=== PATIENT | male | born 1955 | race Caucasian/White ===

== ENCOUNTER 2023-03-25 12:40 | Outpatient (AMB) | payer BC, SELFPAY ==
--- NOTE | 2023-03-25 13:07 | MHC.OFFVIS ---
Intake Intake Visit Reasons: ELevated PSA Intake Note: New Patient presents for initial visit for Elevated PSA (2nd opinion) Urology Medications: Sildenafil, Tamsulosin Blood Thinner: none Medical Clerical Assistant Required: No Accompanied by: Spouse Allergies No Known Allergies Allergy (Verified 03/25/23 21:19) Medication List - Last Reconciled 03/25/23 by DARIEL Shah atorvastatin 40 mg PO DAILY colchicine mg PO escitalopram oxalate 10 mg PO DAILY fenofibrate nanocrystallized 48 mg PO DAILY finasteride 5 mg PO DAILY 90 days lisinopril 10 mg PO DAILY sildenafil mg PO DAILY tamsulosin mg PO DAILY HPI HPI Comments History of Present Illness Details Savanna is a very pleasant 68-year-old male patient of Dr. Tuttle?was accompanied by his at today's office visit. He has a past medical history of hyperlipidemia, nephrolithiasis, chronic kidney disease, and hypertension. He presents to the office today for a 2nd opinion for an elevated PSA. In discussion with the patient today reports following up with [facility] for a PSA of 6.5. It appears prostate MRI was ordered and performed these results were reviewed with the patient today. A 1.8 x 1.4 cm left transition zone lesion extending from the base to mid gland PI-RADS category 5 very high clinical significant cancer is highly likely to be present. A 2 x 1.3 cm left transitional zone lesion in the mid gland and 1.9 x 1cm right peripheral zone lesion in the apex PI-RADS category 3. No evidence of adenopathy, capsule, or seminal vesicle invasion. No suspicious osseous lesions present. 3D processing calculated prostate volume of approximately 58 mL. Discussed at length potential causes for elevated PSA. Discussed undergoing targeted biopsy for further assessment evaluation. Discussed procedure at length. All questions were answered. When asked he reports to be happy with current voiding parameters on 0.4 mg of Flomax. He otherwise denies urinary urgency, urinary frequency, incontinence, nocturia, hematuria, dysuria, foul smelling urine, changes to urinary stream, flank pain, fever, and or chills. When asked he does report family history of prostate cancer. [facility], LAT[facility] Medical History Hyperlipidemia Lower urinary tract symptoms Nephrolithiasis Chronic kidney disease Hypertension Surgical History History of hernia repair Review of Systems Const Reports no additional complaints Eyes Reports no additional complaints ENT Reports no additional complaints Card Reports as per HPI Resp Reports no additional complaints GI Reports no additional complaints Reports as per HPI Musc Reports no additional complaints Neuro Reports no additional complaints Psych Reports no additional complaints Endo Reports no additional complaints Liam/Lymph Reports no additional complaints Aller/Immun Reports no additional complaints Physical Exam Const General: cooperative, healthy appearing, comfortable, no acute distress, well developed, alert and awake Orientation/consciousness: patient oriented x3 Limitations: no limitations HEENT Head: Yes normal to inspection, Yes normocephalic and Yes atraumatic Ears: hearing grossly normal bilaterally Eyes General: appearance normal, both eyes and all related structures Neck Neck: Yes normal visual inspection and Yes trachea midline Chest Chest palpation & inspection: normal inspection of the chest Resp Effort & Inspection: normal respiratory effort and able to speak in complete sentences Cardio Rate: regular rate GI Inspection: Yes normal to inspection General: Yes no CVA tenderness Back/Spine/Pelvis Back: no CVA tenderness Skin General skin exam: no rashes or lesions noted Neuro General: patient oriented x3 Extrem General: Yes normal to inspection Psych Appearance: grossly normal and well kempt Mental Status: mental status grossly normal Speech and movement: Normal speech and movement present and Clear speech present Affect: normal affect Attitude: cooperative Thought process: Normal thought process present Thought content: Normal thought content present Insight: Fair insight present (Psych) Judgement: Fair judgement present (Psych) Results AMB Urinalysis, Automated UA Leukoctes 0 Janice/uL Last Edit by [employer] on 03/25/23 13:13 UA Nitrite Negative Last Edit by [employer] on 03/25/23 13:13 UA Urobilinogen 0.2 mg/dL Last Edit by [employer] on 03/25/23 13:13 UA Protein 0 mg/dL Last Edit by [employer] on 03/25/23 13:13 UA pH 8.0 Last Edit by [employer] on 03/25/23 13:13 UA Blood 0 Reji/uL Last Edit by [employer] on 03/25/23 13:13 UA Specific [place] 1.015 Last Edit by [employer] on 03/25/23 13:13 UA Ketone Negative Last Edit by Deena Ngo on 03/25/23 13:13 UA Bilirubin 0 mg/dL Last Edit by Deena Ngo on 03/25/23 13:13 UA Glucose 0 mg/dL Last Edit by Deena Ngo on 03/25/23 13:13 Results Reviewed Results Reviewed: Laboratory Last Values Urine pH (Auto) 8.0 03/25/23 13:08 Specific [place] (Auto) 1.015 03/25/23 13:08 Urine Protein (Auto) 0 mg/dL 03/25/23 13:08 Glucose (UA)(Auto) 0 mg/dL 03/25/23 13:08 Urine Ketones (Auto) Negative 03/25/23 13:08 Urine Blood (Auto) 0 Reji/uL 03/25/23 13:08 Urine Nitrite (Auto) Negative 03/25/23 13:08 Urine Bilirubin (Auto) 0 mg/dL 03/25/23 13:08 Urine Urobilinogen (Auto) 0.2 mg/dL 03/25/23 13:08 Leukocyte Esterase (Auto) 0 Janice/uL 03/25/23 13:08 Assessment & Plan Assessment & Plan (1) Elevated PSA: Code(s): R97.20 - Elevated prostate specific antigen [PSA] Plan: Risks, benefits and alternatives to therapy were discussed. These include but are not limited to infection, bleeding, damage to local organs and tissues, need for further interventions. ? Anesthetic risks regarding cardiac arrhythmia, blood clots, and potential mortality were discussed. The patient understands the typical recovery time and the outpatient nature of the procedure. After consideration of these risks the patient gives full informed consent and they wish to move ahead with the procedure. Plan In office urinalysis results reviewed with the patient today; as noted above. Continue Flomax as patient reports to be happy with current voiding parameters on Flomax 0.4 mg daily. Discussed at length potential causes for elevated PSA. Prostate MRI results reviewed with the patient today; as noted above. Discussed at length risks and benefits of prostate biopsy versus targeted prostate biopsy verses surveillance monitoring Start finasteride 5 mg as discussed and prescribed. Discussed risks and benefits of further treatment options as mentioned at length. Will schedule for targeted biopsy with Dr. Faith as discussed Follow-up status post targeted biopsy per Dr. Faith's orders; or sooner with any issues, concerns, and or questions. Orders: Orders AMB Urinalysis Automated Today Z13.9 - Encounter for screening, unspecified Medications: New finasteride 5 mg PO DAILY 90 days 90 tabs 1RF N40.1 - Benign prostatic hyperplasia with lower urinary tract symptoms, R33.9 - Retention of urine, unspecified Patient Instructions: The patient had an opportunity to ask questions regarding the treatment plan. All questions were answered. Physical exam, labs, and imaging were discussed and reviewed in detail. As well as risks, benefits, and discussion of treatment choices. No major barriers to understanding were identified. The patient expressed understanding and agreement with the above treatment plan. The patient was made aware they should contact our office by phone for worsening of their current condition, the appearance of new symptoms, or with any questions or concerns. Compliance is encouraged with any medications and follow up testing that is ordered. It is a privilege to be allowed the opportunity to participate in? your urological care.? Again, if you have any questions or concerns If you have any questions or concerns please do not hesitate to contact me. The office is [phone]. This note is constructed using voice recognition software. While every effort has been made to ensure accuracy loss claim clerk errors may have been included. Yours sincerely, DARIEL Shah Coding Level of Care Code New Pt Level 4 (65840) Diagnoses Elevated PSA R97.20
== END 2023-03-25 13:53 | disposition home or self-care (01) ==
PROVIDERS: PCP Urology; Visit Provider Nurse Practitioner Family
DX: R97.20 Elevated prostate specific antigen [PSA] (principal)
CPT/HCPCS: 99204

== ENCOUNTER → 2023-03-25 12:40 | Outpatient (BNVA) | payer BC, SELFPAY | PROVIDERS: PCP Urology; Visit Provider Nurse Practitioner Family | DX: R97.20 Elevated prostate specific antigen [PSA] (principal); N40.1 Benign prostatic hyperplasia with lower urinary tract symptoms; R33.8 Other retention of urine | CPT/HCPCS: 81003 ==

== ENCOUNTER 2023-04-29 08:01 | Outpatient (AMB) | payer BC, SELFPAY ==
--- NOTE | 2023-04-29 08:02 | A.OFFVIS_ITS ---
Intake Intake Visit Reasons: H&P Targeted Prostate biopsy(Portal Confirm) Intake Note: Patient presents today for a telehealth follow-up Meds- Finasteride, Sildenafil, Tamsulosin Allergies to Antibiotic- No Known Allergies Blood Thinner- None Fisheries Management Biologist Required: No Allergies No Known Allergies Allergy (Verified 04/29/23 08:05) HPI HPI Comments History of Present Illness Details Tanmay is a pleasant male. He is a patient of . He seen for the following urologic conditions - elevated PSA Telemedicine Evaluation 15 min Consultation [employer] Video attempted Plan for targeted ultrasound MRI fusion biopsy. Discussed process. Targeting platform performed as transperineal biopsy. This allows potential for future targeted prostate lesion therapy. Elevated PSA Prior PSA 6.5 Prostate MRI - left transition zone base 1.8 x 1.4 cm PI-RADS 5. Left transition zone mid gland 2 x 1.3 cm PI-RADS 3. KENDAL negative. Seminal vesicles normal [facility] Medical History Hyperlipidemia Lower urinary tract symptoms Nephrolithiasis Chronic kidney disease Hypertension Surgical History History of hernia repair Review of Systems Const All systems reviewed & are unremarkable except as noted in HPI and below Denies chills and Denies fever(s) Card Reports no additional complaints and Denies syncope Resp Denies cough GI Denies abdominal pain and Denies heartburn Reports as per HPI and Denies change in libido Musc Reports no additional complaints Neuro Denies syncope Psych Denies change in libido Endo Denies change in libido Physical Exam Telemedicine evaluation Appropriate responses Regular breathing rate and rhythm Const General: cooperative, healthy appearing, comfortable and no acute distress Orientation/consciousness: patient oriented x3 HEENT Head: Yes normal to inspection Ears: hearing grossly normal bilaterally Face and sinus: Yes normal facial exam Mouth: moist mucous membranes Eyes General: appearance normal, both eyes and all related structures Neck Neck: Yes normal visual inspection, Yes full ROM and Yes trachea midline Chest Chest palpation & inspection: normal inspection of the chest Resp Effort & Inspection: normal respiratory effort, able to speak in complete sentences and no respiratory distress GI Inspection: Yes normal to inspection Back/Spine/Pelvis Cervical Spine: normal cervical lordosis Thoracic/Lumbar Spine: thoracic and lumbar spine normal to inspection Skin General skin exam: no rashes or lesions noted Neuro General: patient oriented x3, gait normal, tone normal and moves all extremities Extrem General: Yes normal to inspection and Yes capillary refill normal Assessment & Plan Assessment & Plan (1) Elevated PSA: Code(s): R97.20 - Elevated prostate specific antigen [PSA] Plan Risks, benefits and alternatives to therapy were discussed. These include but are not limited to infection, bleeding, damage to local organs and tissues, need for further interventions. Anesthetic risks regarding cardiac arrhythmia, blood clots, and potential mortality were discussed. The patient understands the typical recovery time and the outpatient nature of the procedure. After consideration of these risks the patient gives full informed consent and they wish to move ahead with the procedure. Patient Instructions: Imaging studies, laboratory and physical exam results were discussed and reviewed in detail. No major barriers to patient understanding were identified. An opportunity to ask questions regarding the treatment plan was provided. All questions were answered. The patient expressed understanding and agreement with the above treatment plan. The patient is aware they should contact our office by phone for worsening of their current condition or the appearance of new urologic symptoms. Compliance is encouraged with any medications and followup testing that is ordered. It is a privilege to participate in the urologic care of your patient. If you have any questions or concerns regarding treatment for the above conditions, or other urologic issues, please do not hesitate to contact me. The office telephone contact is [phone]. This note is constructed using voice recognition software. While every effort has been made to ensure accuracy key worker errors may have been included. Yours sincerely, Dr Kevin Faith MD, [facility] - Urology Providers of Expert, Compassionate Care for the Genitourinary System Telehealth Telehealth Location of provider rendering services: practice address Location of patient: address on file Patient Identification confirmed using: Name, : Yes Telehealth method: video Patient verbally consented to treatment: Yes Patient verbally consented to billing insurance company: Yes Patient informed of any privacy concerns related to visit: Yes Coding Level of Care Code Tele Est Pt Level 4 (40933) Diagnoses Elevated PSA R97.20
== END 2023-04-29 08:57 | disposition home or self-care (01) ==
LOC: HO.HUSH 08:02
PROVIDERS: PCP Urology; Visit Provider Urology
DX: R97.20 Elevated prostate specific antigen [PSA] (principal)
CPT/HCPCS: 99213

== ENCOUNTER → 2023-04-29 08:01 | Outpatient (BNVA) | payer BC, SELFPAY | PROVIDERS: PCP Urology; Visit Provider Urology ==

== ENCOUNTER 2023-05-11 06:30 | Day surgery (SDC) | payer MEDICARE, SELFPAY ==
[2023-05-11] VITALS (9 sets, daily range): BP systolic 83–135; BP diastolic 53–81; PULSE 54–69; RESP 14–16; TEMP 36.1–36.7; O2SAT 94–97; BMI 26.9
[2023-05-11] MEDS: Lactated Ringers 1,000 ML 50 ML IVCONT (07:59)
[2023-05-11] MEDS: levoFLOXacin 500 MG TABLET PO (08:02)
--- NOTE | 2023-05-11 08:21 | P.OP_ITS ---
Operative Note Operative Note Date of Service: 05/11/23 Narrative: Prostate MRI - left transition zone base 1.8 x 1.4 cm PI-RADS 5. Left transition zone mid gland 2 x 1.3 cm PI-RADS 3. KENDAL negative. Seminal vesicles normal Preoperative diagnosis: Elevated PSA Postoperative diagnosis: Elevated PSA Procedure: 1. transrectal ultrasound-guided pudendal nerve block 2. MRI-US fusion image registration performed 3. transperineal ultrasound-guided prostate biopsy 16 core including targets Surgeon: Dr. Kevin Faith Anesthetic: Sedation plus local Indications for procedure: Elevated PSA Procedure: After informed consent was verified, the patient was brought into the procedure area. Patient identity confirmed. Perioperative antibiotics confirmed. Safety pause time out performed. Anesthesia performed per protocol. Scrotum taped out of operative area. Iodine prep used. Perineal injection of local anesthetic. Digital guided prostate pudendal nerve block performed with 10 cc of 1% lidocaine. 5cc each side. Combination 10cc iodine with 50cc gel was mixed and placed in the rectum. Ultrasound probe was placed per rectum. Ultrasound probe stabilized on a prostate stepper with attached grid. [employer] software and hardware platform used for US image acquisition, US 3D model creation and MRI-US fusion image overlay. Ultrasound placement was made with external grid calibration for height and prostate diameter in both the transverse and longitudinal planes. Grid A-C covering right prostate and c-F covering left prostate. Numbers 1.0-2.5 covering posterior prostate and 2.5-4.0 covering anterior prostate. Once grid calibration was confirmed prostate ultrasound data acquisition was performed in the transverse fashion. The US images were registered to create model boundaries. A three dimensional ultrasound model was created using [employer] software. The model was reviewed against acquired US images. The planned needle targeting, based on prior acquisition of MRI imaging, was overlaid on the ultrasound images and targets confirmed through ultrasound review. Adjustments were then made between real time and projected model targeting locations. Based on pre-planning evaluation 16 targets had been identified. These included 2 targets of the PI-RADS 3/5 left prostate transition zone identified lesion/s. He tolerated the procedure well. Was transferred to stable condition in the PACU. Printed instructions regarding antibiotic use and common side effects such as low-grade temperature, potential infection and bleeding were given Pathology: 16 core prostate biopsy CPT 37710 Modifier 22 for complexity of procedure execution (Perineal prostate biopsy) CPT 10024 US/MRI target fusion and manipulation in realtime
--- NOTE | 2023-05-11 08:26 | MHC.SHP ---
Pre-Procedural Eval Section A - 24 Hr Update-Section A only Date of Service: 05/11/23 The patient is an INPATIENT: No Changes since office visit: No Cold of Flu in the past 2 weeks, No New Medical Problems, No Changes in Medication and No Patient answered all questions The patient has been examined within 24 hours of the surgical procedure. The History & Physical has been completed within 30 days and I have reviewed it.: Yes Section B - Complete if H&P > 30 days Chief Complaint: Elevated prostate specific antigen [PSA] Details of Present Illness: Elevated PSA - planned transperineal prostate fusion biopsy Relevant Family History (Specify if Yes): No Relevant Social History: None Present Medications: None Medical History: No relevant PMH History of Previous Operations: Relevant previous surgery/procedure and date(s) Allergies: Allergies Allergy/AdvReac Type Severity Reaction Status Date / Time No Known Allergies Allergy Verified 04/29/23 08:05 Review of Systems Sugical H&P ROS: Negative: Constitution, Cardiovascular, Respiratory, Neurological, Psychiatric, Hem-Onc, Allergic/Immunologic, Gastrointestinal, Genitourinary, Musculoskeletal, Integumentary, Endocrine and Eyes/Ears/Nose/Throat Exam Surgical H&P Exam: Normal: HEENT, Normal: Heart, Normal: Lungs, Normal: Extremities, Normal: Abdomen, Normal: Skin and Normal: Neurological Plan Diagnosis/Plan: Unchanged (prostate biopsy fusion) I have reviewed the history and physical and performed a pertinent physical examination on my patient. No changes have occurred unless specified. Time Spent With Patient Time: Total time managing care of this patient today ____ minutes.
--- NOTE | 2023-05-11 08:42 | HO.ANESPROP2 ---
HPI - Anesthesia Eval Consult details Narrative: for prostate bx PMFSH Active Problems Active Problems: All Active Problems (Updated 03/25/23 @ 21:28 by DARIEL Shah) Elevated PSA (Acute) Past Medical History Medical History Hyperlipidemia Lower urinary tract symptoms Nephrolithiasis Chronic kidney disease Hypertension Family History Family history of problems with anesthesia: No Surgical History Surgical History History of hernia repair History of Problems with Anesthesia: No Social History Social History Patient Tobacco Use Status: Never used Tobacco Use of substances other than those prescribed or required for medical reasons: Yes Substance Use Type Other:: last used marijuana months ago Are you DNR?: No Advance Directives: No Advance Directives Information Provided: Yes Meds Allergies Allergy/AdvReac Type Severity Reaction Status Date / Time No Known Allergies Allergy Verified 04/29/23 08:05 Active Medications: Current Medications Lactated Ringer's (Lr) 1,000 mls @ 50 mls/hr IVCONT .Q20H AMIRA Last Admin: 05/11/23 07:59 Dose: 50 mls/hr Oxycodone HCl (Oxycodone Hcl Immed Release 5 Mg Tablet) 5 mg PO Q4H PRN PRN Reason: Breakthrough Pain Home Medications Medication Instructions Recorded Confirmed Last Taken Type atorvastatin 40 mg tablet 40 mg PO DAILY 03/25/23 05/11/23 Unknown History colchicine 0.6 mg tablet 0.6 mg PO DAILY PRN gout 03/25/23 05/11/23 Unknown History fenofibrate nanocrystallized 48 mg 48 mg PO DAILY 03/25/23 05/11/23 Unknown History tablet lisinopril 10 mg tablet 10 mg PO DAILY 03/25/23 05/11/23 Unknown History sildenafil 100 mg tablet 100 mg PO DAILY 03/25/23 05/11/23 Unknown History tamsulosin 0.4 mg capsule 0.4 mg PO DAILY 03/25/23 05/11/23 Unknown History fluoxetine 10 mg capsule 10 mg PO DAILY 04/29/23 05/11/23 05/11/23 History Exam Height,Weight and Vital Signs: Height 5 ft 9 in Weight 82.554 kg Last Vital Signs Temp 98.1 F 05/11/23 07:41 Pulse 61 05/11/23 07:41 Resp 16 05/11/23 07:41 BP 129/73 05/11/23 07:41 Pulse Ox 97 05/11/23 07:41 O2 Del Method Room Air 05/11/23 07:41 Airway Mallampati Class: II TM Dist: >3cm Neck ROM: Full Loose/Missing/Broken Teeth: No Heart: ok Lungs: ok Assessment and Plan Assessment Anesthesia Assessment: Anesthesia Plan Discussed and Chart Reviewed Final Anesthetic Review Family History of Problems with Anesthesia: No History of Problems with Anesthesia: No NPO: Yes ASA Class: II Final Preanesthetic Review: No Changes in Pt Med Stat, Meds/Allgs Chart Reviewed, Consent Obtained/Reviewed and Anes Risks/Benef Reviewed Patient Risk: Low Procedure Risk: Low Anesthetic Plan Anesthetic Plan: GA and Agree w/ Assess. and Plan Disposition: Standard PACU
[2023-05-11] MEDS: Acetaminophen 325 MG TABLET 650 MG PO (10:00)
== END 2023-05-11 12:28 | disposition home or self-care (01) ==
PROVIDERS: PCP Student in an Organized Health Care Education/Training Program; Visit Provider Urology
PROC: (CPT 55700; principal; 2023-05-11 08:40)
DX: R97.20 Elevated prostate specific antigen [PSA] (principal); N42.32 Atypical small acinar proliferation of prostate; Z79.899 Other long term (current) drug therapy; I12.9 Hypertensive chronic kidney disease with stage 1 through stage 4 chronic kidney disease, or unspecified chronic kidney disease; N18.9 Chronic kidney disease, unspecified; Z87.442 Personal history of urinary calculi; E78.5 Hyperlipidemia, unspecified
CPT/HCPCS: 55706; 88305; 88344; C2618; J2704; J3010

== ENCOUNTER → 2023-05-11 06:30 | Outpatient (BNV) | payer MEDICARE, SELFPAY | PROVIDERS: PCP Student in an Organized Health Care Education/Training Program; Visit Provider Urology | DX: R97.20 Elevated prostate specific antigen [PSA] (principal) | CPT/HCPCS: 55700; 76942 ==

== ENCOUNTER 2023-05-27 09:16 | Outpatient (AMB) | payer MEDICARE, SELFPAY ==
--- NOTE | 2023-05-27 09:17 | A.OFFVIS_ITS ---
Intake Intake Visit Reasons: Prostate biopsy results(Confirmed) Intake Note: Patient presents today for a follow up on Prostate Biopsy results Meds- Finasteride, Sildenafil, Tamsulosin Allergies to Antibiotic- No Known Allergies Blood Thinner- None Hoop Puncher Required: No Allergies No Known Allergies Allergy (Verified 05/27/23 09:20) HPI HPI Comments History of Present Illness Details Tanmay is a pleasant male. He is a patient of . He seen for the following urologic conditions - elevated PSA Telemedicine Evaluation 15 min Consultation [employer] [facility] Video attempted Discussed biopsy results No evidence of disease Continue q.6 month follow-up Elevated PSA Prior PSA 6.5 Prostate MRI - left transition zone base 1.8 x 1.4 cm PI-RADS 5. Left transition zone mid gland 2 x 1.3 cm PI-RADS 3. KENDAL negative. Seminal vesicles normal Prostate Biopsy 05/16 Negative Continue finasteride PSA in 6m PFSH Medical History Hyperlipidemia Lower urinary tract symptoms Nephrolithiasis Chronic kidney disease Hypertension Surgical History History of hernia repair Social History Patient Tobacco Use Status: Never used Tobacco Review of Systems Const All systems reviewed & are unremarkable except as noted in HPI and below Reports no additional complaints Resp Reports no additional complaints GI Reports no additional complaints Reports as per HPI Musc Reports no additional complaints Physical Exam Telemedicine evaluation Appropriate responses Regular breathing rate and rhythm HEENT Head: Yes normal to inspection Ears: hearing grossly normal bilaterally Eyes General: appearance normal, both eyes and all related structures Neck Neck: Yes normal visual inspection Chest Chest palpation & inspection: normal inspection of the chest Resp Effort & Inspection: normal respiratory effort and able to speak in complete sentences Assessment & Plan Assessment & Plan (1) Elevated PSA: Code(s): R97.20 - Elevated prostate specific antigen [PSA] (2) BPH w urinary obs/LUTS: Code(s): N40.1 - Benign prostatic hyperplasia with lower urinary tract symptoms; N13.8 - Other obstructive and reflux uropathy Plan Six-month follow-up PSA Patient Instructions: Imaging studies, laboratory and physical exam results were discussed and reviewed in detail. No major barriers to patient understanding were identified. An opportunity to ask questions regarding the treatment plan was provided. All questions were answered. The patient expressed understanding and agreement with the above treatment plan. The patient is aware they should contact our office by phone for worsening of their current condition or the appearance of new urologic symptoms. Compliance is encouraged with any medications and followup testing that is ordered. It is a privilege to participate in the urologic care of your patient. If you have any questions or concerns regarding treatment for the above conditions, or other urologic issues, please do not hesitate to contact me. The office telephone contact is [phone]. This note is constructed using voice recognition software. While every effort has been made to ensure accuracy moveman errors may have been included. Yours sincerely, Dr Kevin Faith MD, [facility] - Urology Providers of Expert, Compassionate Care for the Genitourinary System Telehealth Telehealth Location of provider rendering services: practice address Location of patient: address on file Patient Identification confirmed using: Name, : Yes Telehealth method: video Patient verbally consented to treatment: Yes Patient verbally consented to billing insurance company: Yes Patient informed of any privacy concerns related to visit: Yes Coding Level of Care Code Tele Est Pt Level 4 (31541) Diagnoses Elevated PSA R97.20 BPH w urinary obs/LUTS N40.1; N13.8
== END 2023-05-27 13:00 | disposition home or self-care (01) ==
LOC: HO.HUSH 09:16
PROVIDERS: PCP Student in an Organized Health Care Education/Training Program; Visit Provider Urology
DX: R97.20 Elevated prostate specific antigen [PSA] (principal); N40.1 Benign prostatic hyperplasia with lower urinary tract symptoms; N13.8 Other obstructive and reflux uropathy
CPT/HCPCS: 99213

== ENCOUNTER → 2023-05-27 09:16 | Outpatient (BNVA) | payer MEDICARE, SELFPAY | PROVIDERS: PCP Student in an Organized Health Care Education/Training Program; Visit Provider Urology ==

== ENCOUNTER 2024-03-30 08:41 | Outpatient (REF) | payer MEDICARE, SELFPAY ==
--- OUTSIDE RECORDS SUMMARY | 2024-03-30 08:43 | XMS_ITS | Encounter Summary ---
Author Organization [facility], Address [address] [place] [address] Phone Care Team Providers Care Supervisor Melt House Name Role Phone Juan De Jesus Primary Care Provider [phone] Encounter Details Date Type Department Care Team (Late st Contact Info) Description 10/12/2023 Documentation Only [facility], [address] [place] [address] Sushila Fry ND [address] [place] [id number] Social History Tobacco Use Types Packs/Day Years Used Date Smoking Tobacco: Never Smokeless Tobacco: Never Alcohol Use Standard Drinks/Week Comments Yes 0 (1 standard drink = 0.6 oz pur e alcohol) Sex and Gender Information Value Date Recorded Sex Assigned at Not on file Legal Sex Male 11:13 AM EDT Gender Identity Not on file Sexual Orientation Not on file documented as of this encounter Plan of Treatment Not on file documented as of this encounter Visit Diagnoses Not on filedocumented in this encounter Care Teams Supervisor Melt House Relationship Specialty Start Date End Date Juan De Jesus [address] [place], [place] [id number] PCP - General 10/12/23 documented as of this encounter
--- OUTSIDE RECORDS SUMMARY | 2024-03-30 08:43 | XMS_ITS | Clinical Summary ---
Author Organization [facility] Address [address] [place] [place] [address] Phone Care Team Providers Care Historical Interpreter Name Role Phone Juan De Jesus Primary Care Provider [phone] Allergies No known active allergies Medications lisinopril 5 MG tablet Take 5 mg by mouth 2 Active tamsulosin (FLOMAX) 0.4 MG 24 hr capsule Take 0.4 mg by mouth 2 Active atorvastatin (LIPITOR) 40 MG tablet 2 Active fenofibrate (TRICOR) 48 MG tablet 2 Active meclizine (ANTIVERT) 25 MG tablet TAKE 1 TABLET BY MOUTH THREE TIMES DAILY NEEDED FOR DIZZINESS FOR 5 DAYS 2 Active Active Problems Problem Noted Date Diagnosed Date Essential hypertension 09/04/2021 Resolved Problems Problem Noted Date Diagnosed Date Resolved Date Carotid artery occlusion 09/04/2021 Lower urinary tract symptoms due to benign prostatic hypertrophy 09/04/2021 09/05/2021 Mixed hyperlipidemia 09/04/2021 022 Stage 5 chronic kidney disease 09/04/2021 09/05/2021 Encounters Date Type Department Care Team Description 02/25/2024 Telephone [facility], [address] [place] [address] Sushila Fry MA from Last 3 Months Immunizations Name Administration Dates Next Due SARS-CoV-2, Unspecified 06/07/2021,05/10/2021, Family History Medical History Relation Comments Cancer Father Gout Father Cancer Mother Relation Status Comments Father Mother Social History Tobacco Use Types Packs/Day Years Used Date Smoking Tobacco: Never Smokeless Tobacco: Never Alcohol Use Standard Drinks/Week Comments Yes 0 (1 standard drink = 0.6 oz pur e alcohol) Sex and Gender Information Value Date Recorded Sex Assigned at Not on file Legal Sex Male 11:13 AM EDT Gender Identity Not on file Sexual Orientation Not on file Last Filed Vital Signs Vital Sign Reading Time Taken Comments Blood Pressure 120/60 09/05/2021 8:37 AM EDT Pulse - - Temperature - - Respiratory Rate - - Oxygen Saturation - - Inhaled Oxygen Concentration - - Weight 78.7 kg (173 lb 9.6 oz) 09/05/2021 8:37 A M EDT Height - - Body Mass Index - - Plan of Treatment Health Maintenance Due Date Last Done Comments Pneumococcal Vaccine: 65+ Ye ars (1 of 2 - PCV) 02/12/1961 Colorectal Cancer Screening: Annual FOBT 2003 Colorectal Cancer Screening: Colonoscopy 2003 Colorectal Cancer Screening: Sigmoidoscopy 2003 Influenza Vaccine (#1) 2023 Hepatitis B Vaccine Aged Out No longe r eligible based on patient's age to complete this topic Insurance [employer] [employer] [facility] Care Teams Historical Interpreter Relationship Specialty Start Date End Date Juan De Jesus [address] [place] [address] PCP - General 10/12/23
[2024-03-30 19:05] LABS: PSA,Total (Free>4and<10) 2.38 ng/mL (0.00-4.00)
== END 2024-03-30 08:42 | disposition home or self-care (01) ==
LOC: HO.HKASLDS 08:41
PROVIDERS: Visit Provider Urology
DX: R97.20 Elevated prostate specific antigen [PSA] (principal); Z12.5 Encounter for screening for malignant neoplasm of prostate
CPT/HCPCS: 36415; 84153